=== PATIENT | female | born 1980 | race Hispanic/Latino ===

== ENCOUNTER → 2021-11-04 | Outpatient (CLI) | payer BC ==
[~2021-11-04] MED LIST: DOCU-116 PO; PNV91TAB3 PO; PREN1TAB80 PO
== END | disposition home or self-care (01) ==
LOC: RAH 13:32
PROVIDERS: ATTEND Physical Medicine & Rehabilitation
DX: M54.16 Radiculopathy, lumbar region (principal); M99.05 Segmental and somatic dysfunction of pelvic region
CPT/HCPCS: 72148